=== PATIENT | male | born 1985 | race Caucasian/White ===

== ENCOUNTER 2020-03-11 10:30 | Outpatient (CLI) | payer OTHER, SELFPAY ==
--- NOTE | 2020-03-15 18:37 | P.PCNPFT_ITS ---
PFT Interpretation PFT Interpretation: DOS: 03/11/2020 REQUESTING: Dr. Suggs [facility] REASON FOR TESTING: dyspnea on exertion PULMONARY FUNCTION TESTS Results are reproducible. Spirometry: FEV1 is 95%, FVC 110%, both normal. FEV1% is decreased consistent with airflow obstruction. Ther [id number]% is decreased at 52%, and this increases by 52% after bronchodilator. Lung volumes: TLC 104, RV 81%, both normal. Airway resistance increased at 194%. Diffusion: DLCO normal 95%. Flow volume loop: Mild coving of the expiratory limb. IMPRESSION: Small airways pattern with good response to bronchodilator. in the proper clinical setting, this pattern may represent asthma. Dacia Ordonez MD
== END 2020-03-11 10:31 | disposition home or self-care (01) ==
LOC: ANHPFT 10:33
PROVIDERS: Visit Provider Internal Medicine Critical Care Medicine
DX: R06.09 Other forms of dyspnea (principal); R94.2 Abnormal results of pulmonary function studies
CPT/HCPCS: 94060; 94726; 94729

== ENCOUNTER 2020-06-30 07:36 | Outpatient (CLI) | payer OTHER, SELFPAY ==
--- NOTE | 2020-07-29 18:18 | WPDPFTINT ---
PFT Interpretation This is a methacholine challenge test. The test was performed and interpreted in accordance with the [employer] [place] [employer] guidelines. The test was performed with increasing doses of nebulized methacholine using a 2 minute tidal breathing protocol. The best post-methacholine FEV1 values were used to calculate the change from the post diluent FEV1. Findings: Baseline FEV1 5.97 L, 111% predicted. Post diluent FEV1 5.91 L Post 0.025 mg/ml methacholine FEV1 6.02 L, increased 2% Post 0.25 mg/mL methacholine FEV1 5.99 L, increased 1% Post 2.5 mg/mL methacholine FEV1 5.77 L, decreased 2% Post 10 mg/mL methacholine FEV1 5.47 L, decreased 7% Post 25 mg/mL methacholine FEV1 4.74 L, decreased 19.8% Post albuterol nebulization FEV1 5.75 L Impression: The PC20 is greater than 25 mg/ml which is categorized as normal bronchial responsiveness. There are no prior methacholine challenge studies for comparison
== END 2020-06-30 07:37 | disposition home or self-care (01) ==
PROVIDERS: Visit Provider Internal Medicine Critical Care Medicine
DX: R06.09 Other forms of dyspnea (principal)
CPT/HCPCS: 94070; J7674